=== PATIENT | female | born 1970 | race Caucasian/White ===

== ENCOUNTER 2017-02-01 05:59 | Day surgery (SDC) | payer OTHER ==
[~2017-02-01] VITALS: Ht 160 cm; Wt 83.9 kg
[~2017-02-01 05:59] MED LIST: BUPR75TA5 PO; CRANPOW2 PO
[2017-02-01] MEDS ORDERED: LIDOCAINE 1% MDV 20ML VIAL SQ PRN (06:15)
[2017-02-01] MEDS ORDERED: LR 1,000 ML IV ONE (06:15)
[2017-02-01] MEDS ORDERED: ceFAZolin 2 GM/D5W 50 ML IV BAG (J0690) As Ordered ONE (07:09)
[2017-02-01] MEDS ORDERED: fentaNYL 100 MCG/2 ML INJECTION (J3010) As Ordered ONE (07:10)
[2017-02-01] MEDS ORDERED: PROPOFOL 200 MG/20 ML VIAL As Ordered ONE ×2 (07:10→09:06)
[2017-02-01] MEDS ORDERED: MIDAZOLAM INJ 2 MG/2 ML VIAL (J2250) As Ordered ONE (07:10)
[2017-02-01] MEDS ORDERED: dexameTHASONE 4 MG/ML 1ML VIAL (J1100) As Ordered ONE (07:17)
[2017-02-01] MEDS ORDERED: LIDOCAINE 2% MDV 20 ML VIAL As Ordered ONE (07:17)
[2017-02-01] MEDS ORDERED: BACITRACIN PWD 50,000 UNITS VIAL As Ordered ONE (07:18)
[2017-02-01] MEDS ORDERED: NEOSPORIN GU IRRIG 20 ML VIAL As Ordered ONE (07:18)
[2017-02-01] MEDS ORDERED: BUPIVACAINE HCL 0.5% 30 ML VIAL As Ordered ONE (07:18)
[2017-02-01] MEDS ORDERED: LIDOCAINE 2% INJ 100 MG/5 ML SDV (FOR ANES.) As Ordered ONE (07:36)
[2017-02-01] MEDS ORDERED: PROPOFOL 500 MG/50 ML VIAL As Ordered ONE (08:43)
[2017-02-01] MEDS ORDERED: KETOROLAC 60 MG/2 ML VIAL (J1885) As Ordered ONE (08:51)
[2017-02-01] MEDS ORDERED: ONDANSETRON 4MG/2ML VIAL (J2405) IV PRN (10:15)
[2017-02-01] MEDS ORDERED: LR 1,000 ML IV SCH (10:15)
[2017-02-01] MEDS ORDERED: PERCOCET 5MG/325MG TAB PO PRN (10:15)
[2017-02-01] MEDS ORDERED: fentaNYL 100 MCG/2 ML INJECTION (J3010) IV PRN (10:15)
[2017-02-01 12:30] VITALS: BP 133/68
--- NOTE | 2017-02-02 08:39 | RO ---
DATE OF PROCEDURE: 02/01/2017 PREOPERATIVE DIAGNOSIS: 1. 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 2. Arthritis second metatarsophalangeal joint left foot. POSTOPERATIVE DIAGNOSIS: PROCEDURE: Sarah implant resurfacing second metatarsal left foot with Arthrosurface 7 mm tapered post with a Arthrosurface 12 mm articular component with a 1 mm x 1.5 mm offset. SURGEON: Luis Fernando Flores DPM [employer] ARCHITECT: None. ANESTHESIA: Local monitored anesthesia care (MAC). IRRIGATION: Dilute bacitracin, neomycin and polymyxin B solution. IMPLANTS UTILIZED: [place] Dart-Fire 3.0 x 20 mm headed screw and a Arthrosurface HemiCAP implant with a 7 mm tapered post with a 12 mm articular component, 1 mm x 1.5 mm offset, left foot. HEMOSTASIS: Ankle pneumatic tourniquet at 200 mmHg for 93 minutes on the left ankle. DESCRIPTION OF PROCEDURE: On 02/01/2017, this 46-year-old female was taken from her hospital room to the operating room and placed on the operating table in the supine position. Following the induction of intravenous (IV) sedation and local and regional anesthesia, the left lower extremity was prepped and draped in the usual aseptic manner. The left lower extremity was elevated to 40 degrees. The tourniquet was rapidly inflated, sterile draping was completed and the following procedure was performed: SARAH IMPLANT RESURFACING SECOND METATARSAL LEFT FOOT WITH ARTHROSURFACE 7 MM TAPERED POST WITH A ARTHROSURFACE 12 MM ARTICULAR COMPONENT WITH A 1 MM X 1.5 MM OFFSET: Attention was directed to the patient's second metatarsophalangeal joint where there was noted to be considerable limited range of motion of the second metatarsophalangeal joint. X-rays revealed considerable destruction of the second metatarsal. At this time, a 5 cm incision was placed over the second metatarsophalangeal joint. Dissection was carried down. The extensor tendons were retracted in a lateral direction. A linear capsulotomy was performed in the same plane as the original skin incision. Dissection was then carried down to the second metatarsophalangeal joint, which was inspected and showed considerable destruction of the dorsal 90% of the second metatarsal head with spurring noted of the medial and lateral proximal phalanx. The spurring of the proximal phalanx medial and lateral was then osteotomized with a power saw and removed. Utilizing the standard technique, an Arthrosurface sizer head was placed onto the metatarsal head and a K-wire was driven into the second metatarsal shaft utilizing a C-arm to verify medial to lateral and dorsal to plantar position. When satisfactory position was established, the area was tapped and a 7 mm tapered post was placed into the second metatarsal. This was then reamed to allow the acceptance of a 12 mm articular component, 1 mm x 1.5 mm offset. A trial was then placed in the area. Spurring around the second metatarsal was then rongeur and filed to a smooth contour leaving a small plantar ledge for stability of the second metatarsal. The implant was then impacted when satisfactory resection of the osteophytes were noted. The wound was flushed with copious amounts of dilute bacitracin, neomycin and polymyxin B solution. After seating the 12 mm articular Arthrosurface component, the toe was brought through range of motion, which was noted to be unrestricted in a dorsal direction. Attention was then directed towards closure after the wound was irrigated with #2-0 Monocryl in a simple interrupted type fashion. Subcutaneous tissues were coapted and maintained with #4-0 Monocryl in a simple interrupted type fashion. The extensor tendons were noted to be dorsal with the second metatarsal. The skin was then coapted and maintained with #5-0 Monocryl in continuous subcuticular type fashion. Attention was then directed to the first metatarsal where the following procedure was performed: ERMELINDA BUNIONECTOMY, INTERNAL SCREW FIXATION 3.0 X 20 MM X 1 LEFT FOOT: Attention was directed to the patient's left foot where there was noted to be a hallux valgus deformity. At this time, a 6 cm incision was placed over the first metatarsophalangeal joint medial to the extensor tendon. The incision was deepened through subcutaneous tissues and all coursing venous tributaries were identified, underscored, clamped, cut, ligated and electrocoagulated as necessary. A plantar capsulotomy was then performed in the same plane as the original skin incision. Capsular and periosteal structures were then dissected free dorsally and medially. The hypertrophied medial eminence of the first metatarsal was then osteotomized from distal to proximal, exiting medial to the sesamoidal groove, and this was extirpated from the wound in toto. Dissection was carried into the first intermetatarsal space where dissection was carried down to the level of the fibular sesamoid where the conjoint tendon was released from the fibular sesamoid. Attention was directed to the medial surface of the first metatarsal where a modified V-shaped osteotomy was performed. A long plantar and short dorsal wing and the distal metaphysis of the first metatarsal a capital fragment was transposed approximately 30-40% of the width of the shaft of the first metatarsal and fixated with a 3.0 x 20 mm cannulated compression screw in a proximal to distal fashion. The osteotomy was noted to be stable in all three cardinal planes and the screw did not penetrate the inferior cartilage on direct visualization. The redundant cortical spike was then osteotomized from dorsal to plantar, through and through and extirpated from the wound in toto. The medial surface was rasped to a smooth contour with a handheld rasp. The wound was flushed with copious amounts of dilute bacitracin, neomycin and polymyxin B solution. Attention was directed towards closure where the capsular structure was coapted and maintained utilizing #2-0 Monocryl in a simple interrupted type fashion. The subcutaneous tissues were coapted and maintained utilizing #4-0 Monocryl in a simple interrupted type fashion. Skin incision was coapted and maintained utilizing #5-0 Monocryl in a continuous subcuticular type fashion. This was additionally reinforced with Steri-Strips. Following completion of the surgical procedure, 4 mg dexamethasone sodium phosphate was instilled proximal to the surgical site. Attention was directed towards bandaging where a sterile compressive bandage was applied consisting of Adaptic, 4 x 4s, 4 x 4 splints, Katharine, Kerlix and Coban. The ankle pneumatic tourniquet was rapidly deflated and instantaneous capillary filling time was noted in digits 1-5 of the patients left foot. The patient having apparently tolerated the surgical procedure well was taken from the operating room (OR) to the recovery room with vital signs stable and the patient afebrile for further monitoring by the anesthesia department. All surgical specimens removed during the operative procedure were sent to pathology for gross and microscopic examination. Postoperative instructions will be given upon discharge.
--- NOTE | 2017-02-05 14:28 | REP ---
Clinical: Postoperative baseline evaluation. Technique: Portable AP, lateral, oblique views. Findings: Postsurgical changes involving the fourth and fifth distal metatarsal bones and metatarsophalangeal joints satisfactory reduction. Overlying postsurgical changes are appreciated. Impression: Postoperative changes noted involving the fourth and fifth toes. Signed by Boo Perez MD 02/01/2017 10:23 A
== END 2017-02-01 12:39 | disposition home or self-care (01) ==
LOC: M SDC 05:59
PROVIDERS: ATTEND Podiatrist
DX: M20.12 Hallux valgus (acquired), left foot (principal); M19.072 Primary osteoarthritis, left ankle and foot; F41.9 Anxiety disorder, unspecified; F32.9 Major depressive disorder, single episode, unspecified; Z79.899 Other long term (current) drug therapy; F17.210 Nicotine dependence, cigarettes, uncomplicated
CPT/HCPCS: 28296; 28899; 73630; 88300; C1713; J0690; J1100; J1885; J2250; J3010; L8641

== ENCOUNTER 2017-08-30 05:55 | Day surgery (SDC) | payer OTHER ==
[2017-08-30] MEDS ORDERED: LR 1,000 ML IV (06:00)
[2017-08-30] MEDS ORDERED: LIDOCAINE 1% MDV 20ML VIAL SQ (06:15)
[2017-08-30 06:40] LABS: CONTROL LINE HCG INT CTR LINE PRESENT; HCG, SERUM QUALITATIVE NEGATIVE (NEGATIVE)
[2017-08-30] MEDS: LIDOCAINE 2% MDV 20 ML VIAL As Ordered (07:26)
[2017-08-30] MEDS: BUPIVACAINE HCL 0.5% 30 ML VIAL As Ordered (07:36)
[2017-08-30] MEDS ORDERED: MIDAZOLAM INJ 2 MG/2 ML VIAL (J2250) As Ordered (07:47)
[2017-08-30] MEDS ORDERED: LIDOCAINE 2% INJ 100 MG/5 ML SDV (FOR ANES.) As Ordered (07:47)
[2017-08-30] MEDS ORDERED: ONDANSETRON 4MG/2ML VIAL (J2405) As Ordered (07:47)
[2017-08-30] MEDS ORDERED: fentaNYL 100 MCG/2 ML INJECTION (J3010) As Ordered (07:47)
[2017-08-30] MEDS ORDERED: PROPOFOL 200 MG/20 ML VIAL As Ordered (07:47)
[2017-08-30] MEDS: dexameTHASONE 4 MG/ML 1ML VIAL (J1100) As Ordered (07:57)
[2017-08-30] MEDS: BACITRACIN PWD 50,000 UNITS VIAL As Ordered (08:01)
[2017-08-30] MEDS: NEOSPORIN GU IRRIG 20 ML VIAL As Ordered (08:02)
== END 2017-08-30 09:45 | disposition home or self-care (01) ==
LOC: M SDC 05:55
DX: M20.11 Hallux valgus (acquired), right foot (principal); M20.62 Acquired deformities of toe(s), unspecified, left foot; M12.872 Other specific arthropathies, not elsewhere classified, left ankle and foot; M20.12 Hallux valgus (acquired), left foot; M20.61 Acquired deformities of toe(s), unspecified, right foot; Z98.51 Tubal ligation status; Z72.0 Tobacco use
CPT/HCPCS: 28296